=== PATIENT | female | born 1985 | race Two or more races ===

== ENCOUNTER 2020-06-08 14:45 | Inpatient (IN) | payer OTHER ==
[~2020-06-08] VITALS: Ht 165.1 cm; Wt 3.6 kg
[2020-06-14] MEDS ORDERED: PRENATAL + DHA1 EAC1 PO (10:31)
== END 2020-06-17 12:31 | disposition home or self-care (01) | DRG 785 ==
LOC: O/R 06-14 10:01 → OB/GYN 06-14 10:01 → LDR 06-14 14:45 → OB/GYN 06-14 14:45 → LDR 06-14 15:45 → OB/GYN 06-14 17:10
PROVIDERS: ADMIT Obstetrics & Gynecology; ATTEND Obstetrics & Gynecology
PROC: 0UL70ZZ Occlusion of Bilateral Fallopian Tubes, Open Approach (ICD-10-PCS; 2020-06-14)
PROC: 4A1HXCZ Monitoring of Products of Conception, Cardiac Rate, External Approach (ICD-10-PCS; 2020-06-14)
PROC: 10D00Z1 Extraction of Products of Conception, Low, Open Approach (ICD-10-PCS; principal; 2020-06-14 15:45)
DX: O82 Encounter for cesarean delivery without indication (principal); Z3A.39 39 weeks gestation of pregnancy; Z37.0 Single live birth; Z30.2 Encounter for sterilization

== ENCOUNTER 2025-03-09 11:32 | Day surgery (SDC) | payer OTHER ==
[2025-03-04 10:33] LABS: URINE APPEARANCE Clear; URINE BILIRRUBIN Negative (NEGATIVE); URINE BLOOD Negative; URINE COLOR Yellow; URINE GLUCOSE Negative (NEGATIVE); URINE KETONE Negative (NEGATIVE); URINE LEUKOCYTE Negative; URINE NITRATE Negative; URINE PROTEIN Negative (NEGATIVE); URINE UROBILINOGEN 0.2 E.U./dl
[2025-03-04 10:38] LABS: URINE BACTERIA 236.1 uL (0.0-1933); URINE EPITHELIAL CELLS 12.3 uL (0.0-38.8); URINE WBC 4.9 uL (0.0-23.2)
[2025-03-04 10:44] LABS: INR 1.02; PARTIAL THROMBOPLASTIN TIME 28.4 SECONDS (22.0-34.0); PROTHROMBIN TIME 11.1 SECONDS (9.0-11.5)
[2025-03-04 10:48] LABS: HEMATOCRIT 38.4 % (36.0-45.00); HEMOGLOBIN 12.9 g/dL (12.0-15.00); MEAN CORPUSCULAR HEMOGLOBIN 29.8 pg (27.00-32.0); MEAN CORPUSCULAR HGB CONC 33.5 g/dl (32.0-36.0); PLATELET COUNT 220 K/uL (150-450); RED BLOOD COUNT 4.32 M/uL (4.00-6.00); RED CELL DISTRIBUTION WIDTH 12.8 % (11.5-14.5)
[~2025-03-09 11:32] MED LIST: PRENATAL + DHA1 EAC1 PO
[2025-03-09] MEDS ORDERED: POVIDONE-IODINE 118 ML BOTT TOP ONE (18:00)
[2025-03-09] MEDS ORDERED: RINGERS SOLUTION,LACTATED 1,000 ML IV SCH (18:15)
== END 2025-03-09 19:55 | disposition home or self-care (01) ==
LOC: CIR.AMB 11:32
PROVIDERS: ATTEND Obstetrics & Gynecology
DX: D06.9 Carcinoma in situ of cervix, unspecified (principal); J32.9 Chronic sinusitis, unspecified